=== PATIENT | female | born 1980 | race Caucasian/White ===

== ENCOUNTER 2025-01-04 12:10 | Emergency (ER) | payer OTHER, SELFPAY ==
[2025-01-04 12:21] VITALS: BP 112/75
[2025-01-04 12:43] LABS: Urine Character Clear (Clear)
[2025-01-04 13:02] LABS: Urine Squamous Cell >30 /LPF (Few)
--- NOTE | 2025-01-04 13:04 | ED.GENMED ---
History of Present Illness
General
Chief Complaint: Urinary Symptoms
Time Seen by Provider: 01/04/25 13:04
History of Present Illness
History of Present Illness:
FOCUSED PAST MEDICAL HISTORY
- Hyperlipidemia, diverticular disease, diabetes
REVIEW OF OLD RECORDS
- The patient was seen with elevated blood sugars in 2022 here in the emergency department.
Note:
CHIEF COMPLAINT(S)
Worsening urinary symptoms, increased abdominal pain, and systemic discomfort following a diagnosis of urinary tract infection (UTI).
HISTORY OF PRESENT ILLNESS
The patient is a 44-year-old female with a history of diabetes who presented with symptoms of general malaise, anorexia, and shakiness, prompting her to visit her physician on Thursday. She was diagnosed with a urinary tract infection (UTI) based on a
urinalysis which revealed the presence of blood cells. The culture indicated moderate growth of Klebsiella pneumoniae. The symptoms have since worsened, including increased abdominal pain and burning upon urination. Recently, she has experienced
difficulty eating, back pain predominantly on the right side, and intermittent chest tightness. Additionally, she expresses concern about a potential kidney infection due to her diabetic status. Despite being on antibiotics, the patient reports
exacerbation of her symptoms.
EXTERNAL RECORDS REVIEWED
A previous urinalysis indicating blood cell presence and urinary culture demonstrating growth of Klebsiella pneumoniae, with colony-forming units between 50,000-99,000.
CHRONIC MEDICAL CONDITIONS SIGNIFICANTLY AFFECTING CARE
Diabetes Mellitus
PHYSICAL EXAM
General: Alert, no acute distress.
Skin: Warm, dry.
Head: Normocephalic, atraumatic.
Neck: Supple, trachea midline.
Eye, Ears, Nose, Mouth, and Throat: Oral mucosa moist.
Cardiovascular: Normal peripheral perfusion, No edema.
Respiratory: Respirations are non-labored.
Gastrointestinal: Non-distended, mild lower abdominal tenderness.
Back: Tenderness, pain radiating predominantly to the right side.
Musculoskeletal: Normal range of motion, normal strength.
Neurological: Alert and oriented to person, place, time, and situation, No focal neurological deficit observed.
Psychiatric: Cooperative, appropriate mood & affect.
PROBLEM LIST
Acute:
- Urinary tract infection (Klebsiella pneumoniae)
- Right-sided back pain
- General malaise and anorexia
Chronic:
- Diabetes Mellitus
PLAN
1. Conduct blood work to assess for systemic involvement.
2. Obtain a CT scan to investigate abdominal pain and rule out complications such as a kidney infection.
3. Consider pain management options if necessary, though the patient is primarily concerned about the potential kidney infection.
4. Follow up with the patient post-CT scan to discuss findings and adjust treatment as necessary.
DIFFERENTIAL DIAGNOSIS
The Differential Diagnosis includes, in no particular order and is not limited to:
1. Pyelonephritis
2. Renal abscess
3. Diabetic ketoacidosis
4. Nephrolithiasis
5. Urosepsis
6. Interstitial cystitis
7. Appendicitis
8. Gastroenteritis
9. Cholecystitis
10. Musculoskeletal strain
Disposition:
SUMMARY OF ENCOUNTER
The patient, a 44-year-old female with a history of diabetes, was seen in the emergency department for worsening urinary symptoms and abdominal pain following a recent diagnosis of a urinary tract infection (UTI) with Klebsiella pneumoniae. Despite
being on antibiotics, she reports no improvement in symptoms. Blood work in the ED was unremarkable, and urinalysis did not show overwhelming signs of infection, with white cells between 6 and 10, which is close to the normal range. A decision was
made to perform a CT scan to further evaluate the abdominal pain and rule out complications such as a kidney infection. It was noted that the white blood cell count in the urine culture previously taken was not definitive for a UTI as counts were
between 50,000-99,000 CFU/ml.
ASSESSMENT
The patients symptoms may not be due to an active urinary tract infection as previously diagnosed. The clinical picture is not consistent with typical UTI indicators, prompting further imaging studies with a CT scan to rule out potential kidney
complications or other abdominal pathology.
PLAN
Proceed with a CT scan to evaluate the abdominal pain and check for kidney complications. If the scan is negative, consider continuing the current antibiotic regimen with Cefpodoxime. Further follow-up and management depend on the CT scan results.
INDEPENDENT REVIEW OF LABS AND INTERPRETATION OF TESTS
My independent review of the urinalysis shows white blood cells between 6 and 10, which is close to the normal range, under 5 is normal. This is not indicative of a significant urinary tract infection.
MEDICAL DECISION MAKING
-Complexity of Data Reviewed: Chronic conditions affecting care include diabetes mellitus and the differential diagnosis list which includes pyelonephritis, renal abscess, diabetic ketoacidosis, nephrolithiasis, urosepsis, among others.
-Data:
Category 1:
Non-emergency department records reviewed include prior urinalysis and culture indicating growth of Klebsiella pneumoniae, with colony-forming units between 50,000-99,000.
Category 2:
None
Category 3:
None
-Risk:
Consideration of Admission/Observation: Escalation of care including admission/observation was considered given the complexity and risk of the patients presenting complaint, exam findings, and/or their underlying comorbidities. However, ultimately I
feel the patient is safe for outpatient management with close follow up. Reasoning: CT scan would help rule out acute life/organ threatening processes; patient�s symptoms will be better evaluated post-imaging.
DIAGNOSIS
Abdominal/back pain
RADIOLOGY
- CT imaging obtained, no ureteral stone, fatty liver, IUD noted
LABS
- Urinalysis shows 4+ blood, 3+ leukocyte esterase, 3-6 RBC and 6-10 WBC per high-power field, nitrite negative, 3+ leukocyte esterase, of no greater than 30 squamous epithelial cells
UPDATE
- Has appeared fairly comfortable throughout stay and declined analgesia.
Past History
Past History
ED Past Medical History: IDDM, NIDDM and Other (pyelonephritis)
ED Past Surgical History: Cholecystectomy and
Social History
Tobacco: Smoker
Alcohol: None
Drug: Marijuana
Personal:
Living: with family
Employment: Employed
Phy Exam
Physical Exam
Physical Exam:
See HPI
Course
Orders/Labs/Results
Orders:
Orders
01/04/25 12:31
HCG, Urine Qualitative Screen Urgent
Date Specimen was Collected: 01/04/25
Time Specimen was Collected: 12:27
Urinalysis Reflex To Culture Urgent
Date Specimen was Collected: 01/04/25
Time Specimen was Collected: 12:27
Urine Microscopic Reflex Cult Urgent
Urine Culture Urgent
ESTEFANI Source: U
Specimen Description:
Date Specimen was Collected: 01/04/25
Time Specimen was Collected: 12:27
01/04/25 13:28
CT Abd/pel Without Iv Or Oral Urgent
Comment:
Reason For Exam: R>L flank pain lower abd pain
0.9% Sodium Chloride 1000 ml [Nss] 1,000 ml IV BOLUS
01/04/25 13:37
Complete Blood Count/With Diff Urgent
Comprehensive Metabolic Panel Urgent
01/04/25 15:25
Add On- LAB Urgent
Tests Added?: urine hcg screen
Abnormal Lab Results
01/04/25 01/04/25
12:31 13:37
Absolute Monos (auto) 0.9 H 10^3/uL
(0.1-0.6)
Monocytes % 11.6 H %
(1.7-9.3)
Glucose 111 H mg/dl
(70-99)
Ur Occult Blood Reflex 4+ A
(Negative)
Leukocyte Esterase Rfl 3+ A
(Negative)
Urine RBC 3-6 A /HPF
(0-2)
Urine Bacteria (Reflex) Many A
(Negative)
Urine Albumin (Reflex) 2+ A
(Neg - Trace)
01/04/25 13:37
01/04/25 13:37
Vital Signs
Initial and Last Documented VS:
Initial Vital Signs
Temp Pulse Resp BP Pulse Ox
36.9 C 97 16 112/75 95
01/04/25 12:21 01/04/25 12:21 01/04/25 12:21 01/04/25 12:21 01/04/25 12:21
Last Documented Vital Signs
Temp Pulse Resp BP Pulse Ox
36.9 C 72 18 128/74 99
01/04/25 12:21 01/04/25 18:03 01/04/25 18:03 01/04/25 18:03 01/04/25 18:03
*Pulse Oximetry
SaO2: 95
Oxygen Mode of Delivery: Room air
Patient hypoxic: no
*Critical Care Note
Total Time (30-74mins, 75-104mins- exclusive of procedures): Not Applicable
ED Attending Note
-
Portions of this chart may have been created with voice recognition software.� Occasional wrong word or��sound alike� substitutions may have occurred due to the inherent limitations of voice recognition software.
Discharge Plan
Departure
Patient Disposition: Home (Routine Discharge)
Date of Disposition: 01/04/25
Time of Disposition: 18:48
Patient with high blood pressure during this ER visit?: No
Condition: Good
Discharge Problem:
Abdominal pain
Instructions: Abdominal Pain
Referrals:
Omi Chicas PA-C [Family Provider]
Stand Alone Forms: Return to Work
Activity Restrictions/Additional Instructions:
White blood cell count is normal, hemoglobin is normal, chemistry levels including kidney function are normal. Urinalysis has only minimal elevation of the white blood cells. I would recommend that you continue the current antibiotic that you are
on. Return if worse or other concerns.
Interventions
Interventions:
*Risk Screen - Suicide Last Done: 01/04/25 12:21
*General Assessment Last Done: 01/04/25 12:33
*Neglect/Abuse Screening Last Done: 01/04/25 19:50
*ED- Fall Risk Assessment Last Done: 01/04/25 19:50
*ED COVID-19 Vaccine History Last Done: 01/04/25 19:50
*ED Influenza Vaccine History Last Done: 01/04/25 19:50
*Nursing Disposition Last Done: 01/04/25 19:50
ED-Female Genitourinary Assessment Last Done: 01/04/25 12:33
Discharge Date and Time
Discharge Date/Time: 01/04/25 19:52
Print Language: HEBREW
[2025-01-04] MEDS: NSS 1000 IV (13:37)
[2025-01-04 14:09] LABS: Hematocrit 40.3 % (37.0-47.0); Hemoglobin 13.6 g/dL (12.0-16.0); Mean Corp Hgb Conc. 33.7 g/dL (33.0-37.0); Mean Corpuscular Volume 85.4 fL (81.0-99.0); Nucleated Red Blood Cells % 0 %; Platelet Count 320 10^3/uL (130-400); Red Cell Dist. Width 12.7 % (11.5-14.5)
[2025-01-04 14:24] LABS: ALT (SGPT) 22 U/L (0-35); AST (SGOT) 21 U/L (14-36); Albumin 4.6 g/dl (3.5-5.0); Alkaline Phosphatase 81 U/L (38-126); Blood Urea Nitrogen 10 mg/dl (7-17); Calcium 9.8 mg/dl (8.4-10.2); Carbon Dioxide 26 mmol/L (22-30); Chloride 104 mmol/L (98-107); Glucose 111 mg/dl (70-99); Potassium 4.5 mmol/L (3.5-5.1); Sodium 136 mmol/L (135-145); Total Protein 8.2 g/dl (6.3-8.2); eGFR > 60.00
[2025-01-04 15:45] LABS: HCG, Urine Qualitative Screen Negative
[2025-01-04 18:03] VITALS: BP 128/74
== END 2025-01-04 19:52 | disposition home or self-care (01) ==
LOC: EMR 12:10
PROVIDERS: EMERGENCY PHYSICIAN Emergency Medicine; FAMILY PHYSICIAN Physician Assistant Medical
DX: R10.9 Unspecified abdominal pain (principal); E11.9 Type 2 diabetes mellitus without complications; F17.200 Nicotine dependence, unspecified, uncomplicated; E78.5 Hyperlipidemia, unspecified; Z87.440 Personal history of urinary (tract) infections; Z90.49 Acquired absence of other specified parts of digestive tract
CPT/HCPCS: 96360; 99284; 74176; 80053; 81003; 81015; 81025; 85025; 87086